=== PATIENT | male | born 1955 | race Caucasian/White ===

== ENCOUNTER → 2016-12-09 | Outpatient (CLI) | payer OTHER ==
[2016-12-09 07:53] LABS: ABSOLUTE EOSINOPHILS # (AUTO) 0.1 10^3/uL (0.0-0.6); ABSOLUTE LYMPHOCYTES (AUTO) 1.2 10^3/uL (0.5-4.7); ABSOLUTE MONOCYTES (AUTO) 0.4 10^3/uL (0.1-1.4); ABSOLUTE NEUT (AUTO) 2.4 10^3/uL (1.7-8.2); BASOPHILS % (AUTO) 1.1 % (0-2); EOSINOPHILS % (AUTO) 2.6 % (0-6); HEMATOCRIT 44.5 % (37.9-51.0); HEMOGLOBIN 15.3 g/dL (13.5-17.0); HGB HCT DIFFERENCE 1.4; LYMPHOCYTES % (AUTO) 28.5 % (13-45); MEAN CORPUSCULAR HEMOGLOBIN 28.9 pg (27.0-33.4); MEAN CORPUSCULAR HGB CONC 34.4 g/dL (32.0-36.0); MEAN CORPUSCULAR VOLUME 84 fl (80-97); MONOCYTES % (AUTO) 10.2 % (3-13); RED BLOOD COUNT 5.29 10^6/uL (4.35-5.55); RED CELL DISTRIBUTION WIDTH 13.4 % (11.5-14.0); SEGMENTED NEUTROPHILS % (AUTO) 57.6 % (42-78); WHITE BLOOD COUNT 4.2 10^3/uL (4.0-10.5)
[2016-12-09 08:17] LABS: ALANINE AMINOTRANSFERASE 43 U/L (21-72); ALBUMIN 4.5 g/dL (3.5-5.0); ALKALINE PHOSPHATASE 62 U/L (38-126); ANION GAP 12 (5-19); ASPARTATE AMINO TRANSFERASE 35 U/L (17-59); BILIRUBIN,DIRECT 0.1 mg/dL (0.0-0.4); BILIRUBIN,TOTAL 0.7 mg/dL (0.2-1.3); BLOOD UREA NITROGEN 20 mg/dL (7-20); CALCIUM 9.5 mg/dL (8.4-10.2); CARBON DIOXIDE 27 mmol/L (22-30); CHLORIDE 104 mmol/L (98-107); CHOLESTEROL 155.66 mg/dL (0-200); CREATININE RESULT 0.96 mg/dL (0.52-1.25); Direct HDL 59 mg/dL (>40); GLUCOSE 150 mg/dL (75-110); POTASSIUM 4.2 mmol/L (3.6-5.0); TOTAL PROTEIN 6.9 g/dL (6.3-8.2); TRIGLYCERIDES 125 mg/dL (<150)
[2016-12-09 08:28] LABS: DIRECT LDL 70 mg/dL (<100)
== END ==
LOC: OD 07:04
PROVIDERS: ATTEND Internal Medicine
DX: R97.20 Elevated prostate specific antigen [PSA] (principal); I10 Essential (primary) hypertension; E78.2 Mixed hyperlipidemia; E68 Sequelae of hyperalimentation; E11.9 Type 2 diabetes mellitus without complications; Z09 Encounter for follow-up examination after completed treatment for conditions other than malignant neoplasm
CPT/HCPCS: 36415; 80053; 80061; 83036; 84153; 84443; 85025

== ENCOUNTER → 2017-06-16 | Outpatient (CLI) | payer OTHER ==
[2017-06-16 08:50] LABS: ALANINE AMINOTRANSFERASE 44 U/L (21-72); ALBUMIN 4.4 g/dL (3.5-5.0); ALKALINE PHOSPHATASE 60 U/L (38-126); ANION GAP 13 (5-19); ASPARTATE AMINO TRANSFERASE 30 U/L (17-59); BILIRUBIN,DIRECT 0.3 mg/dL (0.0-0.4); BILIRUBIN,TOTAL 0.7 mg/dL (0.2-1.3); BLOOD UREA NITROGEN 15 mg/dL (7-20); CALCIUM 9.2 mg/dL (8.4-10.2); CARBON DIOXIDE 26 mmol/L (22-30); CHLORIDE 103 mmol/L (98-107); CREATININE RESULT 1.06 mg/dL (0.52-1.25); GLUCOSE 155 mg/dL (75-110); POTASSIUM 4.5 mmol/L (3.6-5.0); SODIUM 142.2 mmol/L (137-145); TOTAL PROTEIN 7.3 g/dL (6.3-8.2)
[2017-06-17 08:40] LABS: HEPATITIS C VIRUS AB <0.1 s/co ratio (0.0-0.9)
== END ==
LOC: OD 07:05
PROVIDERS: ATTEND Internal Medicine
DX: E11.9 Type 2 diabetes mellitus without complications (principal); Z20.89 Contact with and (suspected) exposure to other communicable diseases
CPT/HCPCS: 36415; 80053; 82043; 83036; 86803; 86804

== ENCOUNTER → 2018-02-23 | Outpatient (CLI) | payer OTHER ==
[2018-02-23 08:16] LABS: ABSOLUTE EOSINOPHILS # (AUTO) 0.2 10^3/uL (0.0-0.6); ABSOLUTE LYMPHOCYTES (AUTO) 1.2 10^3/uL (0.5-4.7); ABSOLUTE MONOCYTES (AUTO) 0.5 10^3/uL (0.1-1.4); ABSOLUTE NEUT (AUTO) 2.5 10^3/uL (1.7-8.2); BASOPHILS % (AUTO) 0.8 % (0-2); EOSINOPHILS % (AUTO) 5.6 % (0-6); HEMATOCRIT 45.7 % (37.9-51.0); HEMOGLOBIN 15.7 g/dL (13.5-17.0); LYMPHOCYTES % (AUTO) 26.9 % (13-45); MEAN CORPUSCULAR HEMOGLOBIN 29.2 pg (27.0-33.4); MEAN CORPUSCULAR HGB CONC 34.4 g/dL (32.0-36.0); MEAN CORPUSCULAR VOLUME 85 fl (80-97); MONOCYTES % (AUTO) 10.3 % (3-13); PLATELET COUNT 170 10^3/uL (150-450); RED BLOOD COUNT 5.39 10^6/uL (4.35-5.55); RED CELL DISTRIBUTION WIDTH 13.4 % (11.5-14.0); SEGMENTED NEUTROPHILS % (AUTO) 56.4 % (42-78); TOTAL CELLS COUNTED % (AUTO) 100 %; WHITE BLOOD COUNT 4.4 10^3/uL (4.0-10.5)
[2018-02-23 08:38] LABS: ALANINE AMINOTRANSFERASE 35 U/L (21-72); ALBUMIN 4.3 g/dL (3.5-5.0); ALKALINE PHOSPHATASE 54 U/L (38-126); ANION GAP 11 (5-19); ASPARTATE AMINO TRANSFERASE 28 U/L (17-59); BILIRUBIN,DIRECT 0.3 mg/dL (0.0-0.4); BILIRUBIN,TOTAL 0.7 mg/dL (0.2-1.3); BLOOD UREA NITROGEN 14 mg/dL (7-20); CALCIUM 9.2 mg/dL (8.4-10.2); CARBON DIOXIDE 30 mmol/L (22-30); CHLORIDE 103 mmol/L (98-107); CHOLESTEROL 153.68 mg/dL (0-200); GLUCOSE 148 mg/dL (75-110); POTASSIUM 4.4 mmol/L (3.6-5.0); SODIUM 144.4 mmol/L (137-145); TOTAL PROTEIN 6.8 g/dL (6.3-8.2); TRIGLYCERIDES 134 mg/dL (<150)
[2018-02-23 08:49] LABS: DIRECT LDL 75 mg/dL (<100)
[2018-02-24 11:38] LABS: CREATININE URINE 272.9 mg/dL (Not Estab.); MICROALBUMIN URINE 3.6 ug/mL (Not Estab.)
== END ==
LOC: OD 07:15
PROVIDERS: ATTEND Internal Medicine
DX: E11.9 Type 2 diabetes mellitus without complications (principal); E78.2 Mixed hyperlipidemia; Z12.5 Encounter for screening for malignant neoplasm of prostate; Z12.11 Encounter for screening for malignant neoplasm of colon; Z09 Encounter for follow-up examination after completed treatment for conditions other than malignant neoplasm
CPT/HCPCS: 36415; 80053; 80061; 82043; 82272; 82570; 83036; 84153; 85025

== ENCOUNTER → 2018-06-08 | Outpatient (CLI) | payer OTHER ==
[2018-06-08 09:27] LABS: ALANINE AMINOTRANSFERASE 36 U/L (21-72); ALBUMIN 4.3 g/dL (3.5-5.0); ALKALINE PHOSPHATASE 57 U/L (38-126); ANION GAP 9 (5-19); ASPARTATE AMINO TRANSFERASE 30 U/L (17-59); BILIRUBIN,DIRECT 0.3 mg/dL (0.0-0.4); BILIRUBIN,TOTAL 0.8 mg/dL (0.2-1.3); BLOOD UREA NITROGEN 13 mg/dL (7-20); CALCIUM 9.3 mg/dL (8.4-10.2); CARBON DIOXIDE 28 mmol/L (22-30); CHLORIDE 101 mmol/L (98-107); GLUCOSE 180 mg/dL (75-110); POTASSIUM 4.4 mmol/L (3.6-5.0); SODIUM 138.2 mmol/L (137-145)
== END ==
LOC: OD 07:26
PROVIDERS: ATTEND Internal Medicine
DX: E11.9 Type 2 diabetes mellitus without complications (principal)
CPT/HCPCS: 36415; 80053; 83036

== ENCOUNTER → 2018-10-12 | Outpatient (CLI) | payer OTHER ==
[2018-10-12 08:24] LABS: ABSOLUTE BASOPHILS # (AUTO) 0.1 10^3/uL (0.0-0.2); ABSOLUTE EOSINOPHILS # (AUTO) 0.3 10^3/uL (0.0-0.6); ABSOLUTE LYMPHOCYTES (AUTO) 1.3 10^3/uL (0.5-4.7); ABSOLUTE MONOCYTES (AUTO) 0.4 10^3/uL (0.1-1.4); ABSOLUTE NEUT (AUTO) 2.1 10^3/uL (1.7-8.2); BASOPHILS % (AUTO) 1.4 % (0-2); EOSINOPHILS % (AUTO) 7.3 % (0-6); HEMATOCRIT 44.2 % (37.9-51.0); HEMOGLOBIN 15.3 g/dL (13.5-17.0); MEAN CORPUSCULAR HEMOGLOBIN 29.2 pg (27.0-33.4); MEAN CORPUSCULAR HGB CONC 34.7 g/dL (32.0-36.0); MEAN CORPUSCULAR VOLUME 84 fl (80-97); PLATELET COUNT 155 10^3/uL (150-450); RED BLOOD COUNT 5.26 10^6/uL (4.35-5.55); RED CELL DISTRIBUTION WIDTH 13.3 % (11.5-14.0); SEGMENTED NEUTROPHILS % (AUTO) 50.3 % (42-78); TOTAL CELLS COUNTED % (AUTO) 100 %; WHITE BLOOD COUNT 4.1 10^3/uL (4.0-10.5)
[2018-10-12 08:48] LABS: ALANINE AMINOTRANSFERASE 41 U/L (21-72); ALBUMIN 4.4 g/dL (3.5-5.0); ALKALINE PHOSPHATASE 62 U/L (38-126); ANION GAP 10 (5-19); ASPARTATE AMINO TRANSFERASE 34 U/L (17-59); BILIRUBIN,DIRECT 0.1 mg/dL (0.0-0.4); BILIRUBIN,TOTAL 0.7 mg/dL (0.2-1.3); BLOOD UREA NITROGEN 16 mg/dL (7-20); CALCIUM 9.2 mg/dL (8.4-10.2); CARBON DIOXIDE 28 mmol/L (22-30); CHLORIDE 102 mmol/L (98-107); CHOLESTEROL 145.07 mg/dL (0-200); GLUCOSE 169 mg/dL (75-110); SODIUM 140.3 mmol/L (137-145); TOTAL PROTEIN 6.7 g/dL (6.3-8.2); TRIGLYCERIDES 134 mg/dL (<150)
[2018-10-12 08:59] LABS: DIRECT LDL 80 mg/dL (<100)
[2018-10-13 11:37] LABS: CREATININE URINE 209.5 mg/dL (Not Estab.); MICROALBUMIN URINE 3.1 ug/mL (Not Estab.)
== END ==
LOC: OD 07:05
PROVIDERS: ATTEND Physician Assistant
DX: E78.2 Mixed hyperlipidemia (principal); I10 Essential (primary) hypertension; E11.9 Type 2 diabetes mellitus without complications
CPT/HCPCS: 36415; 80053; 80061; 82043; 82570; 83036; 84443; 85025

== ENCOUNTER → 2019-02-25 | Outpatient (CLI) | payer OTHER ==
[2019-02-25 08:59] LABS: ALANINE AMINOTRANSFERASE 36 U/L (21-72); ALBUMIN 4.3 g/dL (3.5-5.0); ALKALINE PHOSPHATASE 55 U/L (38-126); ANION GAP 10 (5-19); ASPARTATE AMINO TRANSFERASE 24 U/L (17-59); BILIRUBIN,DIRECT 0.3 mg/dL (0.0-0.4); BILIRUBIN,TOTAL 0.5 mg/dL (0.2-1.3); BLOOD UREA NITROGEN 13 mg/dL (7-20); CALCIUM 8.9 mg/dL (8.4-10.2); CARBON DIOXIDE 24 mmol/L (22-30); CHLORIDE 105 mmol/L (98-107); CHOLESTEROL 156.23 mg/dL (0-200); GLUCOSE 185 mg/dL (75-110); POTASSIUM 4.2 mmol/L (3.6-5.0); SODIUM 139.1 mmol/L (137-145); TOTAL PROTEIN 6.8 g/dL (6.3-8.2); TRIGLYCERIDES 140 mg/dL (<150)
[2019-02-25 09:10] LABS: DIRECT LDL 79 mg/dL (<100)
[2019-02-26 13:37] LABS: CREATININE URINE 216.4 mg/dL (Not Estab.); MICROALBUMIN URINE 3.2 ug/mL (Not Estab.)
== END ==
LOC: OD 07:05
PROVIDERS: ATTEND Internal Medicine
DX: E11.9 Type 2 diabetes mellitus without complications (principal); E78.2 Mixed hyperlipidemia
CPT/HCPCS: 36415; 80053; 80061; 82043; 82570; 83036

== ENCOUNTER → 2019-06-04 | Outpatient (CLI) | payer OTHER ==
[2019-06-04 08:58] LABS: ALBUMIN 4.6 g/dL (3.5-5.0); ALKALINE PHOSPHATASE 55 U/L (38-126); ANION GAP 11 (5-19); ASPARTATE AMINO TRANSFERASE 26 U/L (17-59); BILIRUBIN,DIRECT 0.2 mg/dL (0.0-0.4); BILIRUBIN,TOTAL 0.6 mg/dL (0.2-1.3); BLOOD UREA NITROGEN 14 mg/dL (7-20); CALCIUM 9.3 mg/dL (8.4-10.2); CARBON DIOXIDE 28 mmol/L (22-30); CHLORIDE 100 mmol/L (98-107); CHOLESTEROL 152.87 mg/dL (0-200); GLUCOSE 138 mg/dL (75-110); POTASSIUM 4.5 mmol/L (3.6-5.0); TOTAL PROTEIN 7.5 g/dL (6.3-8.2); TRIGLYCERIDES 93 mg/dL (<150)
[2019-06-04 09:13] LABS: DIRECT LDL 85 mg/dL (<100)
== END ==
LOC: OD 07:19
PROVIDERS: ATTEND Internal Medicine
DX: E78.2 Mixed hyperlipidemia (principal); E11.69 Type 2 diabetes mellitus with other specified complication
CPT/HCPCS: 36415; 80053; 80061; 83036

== ENCOUNTER → 2019-10-03 | Outpatient (CLI) | payer OTHER ==
[2019-10-03 09:07] LABS: ALBUMIN 4.7 g/dL (3.5-5.0); ALKALINE PHOSPHATASE 58 U/L (38-126); ANION GAP 10 (5-19); ASPARTATE AMINO TRANSFERASE 31 U/L (17-59); BILIRUBIN,TOTAL 0.8 mg/dL (0.2-1.3); BLOOD UREA NITROGEN 17 mg/dL (7-20); CALCIUM 9.2 mg/dL (8.4-10.2); CARBON DIOXIDE 25 mmol/L (22-30); CHLORIDE 104 mmol/L (98-107); CHOLESTEROL 151.72 mg/dL (0-200); GLUCOSE 126 mg/dL (75-110); TOTAL PROTEIN 7.4 g/dL (6.3-8.2); TRIGLYCERIDES 107 mg/dL (<150)
[2019-10-03 09:18] LABS: DIRECT LDL 79 mg/dL (<100)
[2019-10-04 13:37] LABS: CREATININE URINE 93.3 mg/dL (Not Estab.); MICROALBUMIN URINE <3.0 ug/mL (Not Estab.)
== END ==
LOC: OD 07:06
PROVIDERS: ATTEND Internal Medicine
DX: E78.2 Mixed hyperlipidemia (principal); I10 Essential (primary) hypertension; E11.69 Type 2 diabetes mellitus with other specified complication
CPT/HCPCS: 36415; 80053; 80061; 82043; 82570; 83036

== ENCOUNTER → 2020-03-13 | Outpatient (CLI) | payer OTHER ==
[2020-03-13 12:27] LABS: ALBUMIN 4.5 g/dL (3.5-5.0); ALKALINE PHOSPHATASE 50 U/L (38-126); ANION GAP 8 (5-19); ASPARTATE AMINO TRANSFERASE 30 U/L (17-59); BILIRUBIN,TOTAL 0.6 mg/dL (0.2-1.3); BLOOD UREA NITROGEN 18 mg/dL (7-20); CALCIUM 9.2 mg/dL (8.4-10.2); CARBON DIOXIDE 27 mmol/L (22-30); CHLORIDE 103 mmol/L (98-107); CHOLESTEROL 149.89 mg/dL (0-200); GLUCOSE 114 mg/dL (75-110); POTASSIUM 4.1 mmol/L (3.6-5.0); TOTAL PROTEIN 7.2 g/dL (6.3-8.2); TRIGLYCERIDES 85 mg/dL (<150)
[2020-03-13 12:37] LABS: DIRECT LDL 77 mg/dL (<100)
[2020-03-14 12:36] LABS: CREATININE URINE 80.9 mg/dL (Not Estab.); MICROALBUMIN URINE <3.0 ug/mL (Not Estab.)
== END ==
LOC: OD 11:22
PROVIDERS: ATTEND Internal Medicine
DX: E11.69 Type 2 diabetes mellitus with other specified complication (principal); E78.5 Hyperlipidemia, unspecified
CPT/HCPCS: 36415; 80053; 80061; 82043; 82570; 83036

== ENCOUNTER → 2020-09-18 | Outpatient (CLI) | payer MEDICARE, OTHER ==
[2020-09-18 09:16] LABS: ABSOLUTE BASOPHILS # (AUTO) 0.1 10^3/uL (0.0-0.2); ABSOLUTE EOSINOPHILS # (AUTO) 0.2 10^3/uL (0.0-0.6); ABSOLUTE LYMPHOCYTES (AUTO) 1.1 10^3/uL (0.5-4.7); ABSOLUTE MONOCYTES (AUTO) 0.4 10^3/uL (0.1-1.4); ABSOLUTE NEUT (AUTO) 2.5 10^3/uL (1.7-8.2); BASOPHILS % (AUTO) 1.2 % (0-2); EOSINOPHILS % (AUTO) 5.6 % (0-6); HEMATOCRIT 47.5 % (37.9-51.0); HEMOGLOBIN 16.3 g/dL (13.5-17.0); LYMPHOCYTES % (AUTO) 26.3 % (13-45); MEAN CORPUSCULAR HEMOGLOBIN 28.7 pg (27.0-33.4); MEAN CORPUSCULAR HGB CONC 34.3 g/dL (32.0-36.0); MEAN CORPUSCULAR VOLUME 83 fl (80-97); MONOCYTES % (AUTO) 10.4 % (3-13); PLATELET COUNT 170 10^3/uL (150-450); RED BLOOD COUNT 5.69 10^6/uL (4.35-5.55); RED CELL DISTRIBUTION WIDTH 13.6 % (11.5-14.0); SEGMENTED NEUTROPHILS % (AUTO) 56.5 % (42-78); TOTAL CELLS COUNTED % (AUTO) 100 %; WHITE BLOOD COUNT 4.3 10^3/uL (4.0-10.5)
[2020-09-18 09:49] LABS: ANION GAP 8 (5-19); BLOOD UREA NITROGEN 14 mg/dL (7-20); CALCIUM 9.2 mg/dL (8.4-10.2); CARBON DIOXIDE 26 mmol/L (22-30); CHLORIDE 105 mmol/L (98-107); GLUCOSE 134 mg/dL (75-110)
--- NOTE | 2020-09-18 12:01 | EKG REPORT ---
SEVERITY:- ABNORMAL ECG - SINUS RHYTHM INFERIOR INFARCT, AGE INDETERMINATE : Confirmed by: Onel Gastelum MD 18-Sep-2020 12:00:41
== END ==
LOC: OD 07:41
PROVIDERS: ATTEND Orthopaedic Surgery
DX: Z01.810 Encounter for preprocedural cardiovascular examination (principal); Z01.812 Encounter for preprocedural laboratory examination; G56.01 Carpal tunnel syndrome, right upper limb; E11.9 Type 2 diabetes mellitus without complications; I10 Essential (primary) hypertension; R54 Age-related physical debility
CPT/HCPCS: 36415; 80048; 83036; 85025; 93005; 93010